=== PATIENT | female | born 1940 | race Two or more races ===

== ENCOUNTER 2020-03-12 18:49 | Emergency (ER) | payer OTHER ==
[~2020-03-12] VITALS: Ht 154.9 cm; Wt 70.8 kg
[2020-03-12] MEDS ORDERED: ACIDO FOLICO (19:07)
[2020-03-12] MEDS ORDERED: SYNTHROID PO (19:08)
[2020-03-12] MEDS ORDERED: VALSARTAN PO (19:09)
[2020-03-15] MEDS ORDERED: VITAMIN D35000 UNI2 PO (08:14)
[2020-03-15] MEDS ORDERED: CLONAZEPAM2 M1 PO (08:15)
== END 2020-03-12 20:24 | disposition home or self-care (01) ==
LOC: ER 18:49
DX: S52.512A Displaced fracture of left radial styloid process, initial encounter for closed fracture (principal); W18.39XA Other fall on same level, initial encounter; Y93.89 Activity, other specified; Y92.098 Other place in other non-institutional residence as the place of occurrence of the external cause; Y99.8 Other external cause status

== ENCOUNTER 2020-03-16 06:20 | Day surgery (SDC) | payer OTHER ==
[~2020-03-16 06:20] MED LIST: ACIDO FOLICO; CLONAZEPAM2 M1 PO; SYNTHROID PO; VALSARTAN PO; VITAMIN D35000 UNI2 PO
== END 2020-03-16 16:25 | disposition home or self-care (01) ==
LOC: CIR.AMB 06:20
DX: S52.571A Other intraarticular fracture of lower end of right radius, initial encounter for closed fracture (principal)
CPT/HCPCS: 25609; C1776

== ENCOUNTER 2020-03-28 11:53 | Outpatient (CLI) | payer OTHER | END 2020-03-28 11:55 | disposition home or self-care (01) | LOC: RAD 11:53 | DX: Z96.651 Presence of right artificial knee joint (principal) ==

== ENCOUNTER 2020-04-11 09:32 | Outpatient (CLI) | payer OTHER | END 2020-04-11 12:00 | disposition home or self-care (01) | LOC: LAB 09:32 | DX: E55.9 Vitamin D deficiency, unspecified (principal); M85.88 Other specified disorders of bone density and structure, other site; E21.2 Other hyperparathyroidism; E88.89 Other specified metabolic disorders; M81.8 Other osteoporosis without current pathological fracture; E56.1 Deficiency of vitamin K ==

== ENCOUNTER → 2020-04-11 | Outpatient (CLI) | payer OTHER | END | disposition home or self-care (01) | LOC: RAD 10:16 | DX: S52.532D Colles' fracture of left radius, subsequent encounter for closed fracture with routine healing (principal) ==